=== PATIENT | female | born 1965 | race Caucasian/White ===

== ENCOUNTER 2019-01-07 08:38 | Emergency (ER) | payer OTHER ==
[2019-01-07] MEDS: METHYLPREDNISOLONE 125 MG INJ IV (09:47)
[2019-01-07] MEDS: KETOROLAC 30 MG INJ IV (09:51)
[2019-01-07] MEDS: ALBUTEROL 0.5% (NEB) 2.5 MG/0.5 ML AMP INH (09:52)
[2019-01-07] MEDS: IPRATROPIUM (NEB) 0.5 MG/2.5 ML AMP INH (09:52)
== END 2019-01-07 12:15 | disposition home or self-care (01) ==
LOC: FTE 08:38
DX: R05 Cough (principal); I10 Essential (primary) hypertension
CPT/HCPCS: 71045; 81025; 94644; 96374; 96375; 99284-25